=== PATIENT | female | born 1990 | race Caucasian/White ===

== ENCOUNTER 2016-09-23 06:03 | Emergency (ER) | payer MEDICAID ==
[~2016-09-23] VITALS: Ht 157.5 cm; Wt 102.5 kg
[~2016-09-23 06:03] MED LIST: ALBU8.5H3 IH; ALBU8.5H3 INH; CEPH-443 PO; NITR-58 PO; PRED20TA PO
[2016-09-23 06:06] VITALS: Ht 157.5 cm; Wt 102.5 kg
[2016-09-23] MEDS ORDERED: ACETAMINOPHEN 325 MG TAB PO ONE (07:30)
[2016-09-23 07:37] LABS: ADD SCAN DIFF NO
[2016-09-23 07:44] LABS: BASOPHILS % 0.3 % (0.0-2.0); EOSINOPHILS # 0.5 10^3/ul (0.0-0.5); EOSINOPHILS % 3.5 % (0.0-7.0); HEMATOCRIT 41.1 % (37.0-47.0); HEMOGLOBIN 13.2 g/dl (12.0-16.0); LYMPHOCYTES # 2.5 10^3/ul (0.8-2.9); LYMPHOCYTES % 17.5 % (15.0-51.0); MEAN CORPUSCULAR HEMOGLOBIN 28.1 pg (29.0-33.0); MEAN CORPUSCULAR HGB CONC 32.1 g/dl (32.0-37.0); MEAN CORPUSCULAR VOLUME 87.6 fl (82.0-101.0); MEAN PLATELET VOLUME 11.6 fl (7.4-10.4); MONOCYTE # 0.6 10^3/ul (0.3-0.9); MONOCYTES % 4.2 % (0.0-11.0); NEUTROPHIL # 10.7 10^3/ul (1.6-7.5); NEUTROPHILS % 74.2 % (39.0-77.0); PLATELET COUNT 215 10^3/UL (140-415); RED BLOOD COUNT 4.69 10^6/ul (4.20-5.40); RED CELL DISTRIBUTION WIDTH 14.6 % (11.5-14.5); WHITE BLOOD COUNT 14.4 10^3/ul (4.8-10.8)
--- NOTE | 2016-09-23 07:49 | RADRPT ---
PROCEDURE: US OB. CLINICAL INDICATION: Vaginal bleeding TECHNIQUE: Transabdominal views of the pelvis are available for review. COMPARISON: No prior studies are available for comparison. FINDINGS: There is a single intrauterine gestation with the crown-rump length measuring 6.1 cm, corresponding to a gestational age of 12 weeks and 4 days. The heart rate is noted at 152 bpm. The ovaries are not seen. There is no free fluid. RPTAT: AA IMPRESSION: Single live intrauterine with an estimated gestational age of 12 weeks and 4 days, based o n ultrasound measurements. BRITANY based on ultrasound measurements is 04/03/2017. .Payam Rascon MD, MD Date Time Electronically viewed and signed by .Payam Rascon MD, MD on 09/23/2016 07:49 .S/
[2016-09-23] MEDS ORDERED: ACET325T33 PO (08:21)
[2016-09-23] MEDS ORDERED: AMO500 PO (08:21)
[2016-09-23 08:46] LABS: ADD UMIC YES; URINE BILIRUBIN (Dip) NEGATIVE (NEGATIVE); URINE BLOOD (Dip) NEGATIVE (NEGATIVE); URINE COLOR LT. YELLOW (YELLOW); URINE GLUCOSE (Dip) NEGATIVE (NEGATIVE); URINE KETONES (Dip) NEGATIVE (NEGATIVE); URINE LEUKOCYTE ESTERASE (Dip) 2+ (NEGATIVE); URINE NITRITE (Dip) NEGATIVE (NEGATIVE); URINE TOTAL PROTEIN (Dip) NEGATIVE (NEGATIVE); URINE UROBILINOGEN (Dip) 0.2 E.U./dL (0.1-1.0)
[2016-09-23 09:01] LABS: BACTERIA,URINE FEW; URINE RBCS 0-2 /HPF (0)
--- NOTE | 2016-09-23 09:21 | ERD ---
ER Documentation Chief Complaint Date/Time DATE: 09/23/16 TIME: 09:15 Chief Complaint 13 wks , pelvic pain, sore throat, fever HPI This patient is a 25-year-old female presenting to the emergency department for pelvic pain the past 2 days. The pain is worse when coughing. The patient is taken no medication for relief of symptoms. The patient is reportedly 13 weeks . Additionally the patient reports sore throat for 2 days. The patient denies vaginal bleeding, suprapubic cramping, low back pain, dizziness, fevers, chills, or other symptoms at this time. ROS All systems reviewed and are negative except as per history of present illness. Medications Home Meds Active Scripts Acetaminophen* (Tylenol*) 325 Mg Tablet, 2 TAB PO Q6 Y for PAIN AND OR ELEVATED TEMP, #20 TAB Prov:MATT SANCHEZ PA-C 09/23/16 Amoxicillin* (Amoxicillin*) 500 Mg Cap, 500 MG PO BID for 10 Days, #20 CAP Prov:MATT SANCHEZ PA-C 09/23/16 Cephalexin* (Keflex*) 500 Mg Capsule, 500 MG PO BID for 10 Days, CAP Prov:MATY PHILLIPS PA-C 10/11/15 Nitrofurantoin Monohyd Macrocr* (Macrobid*) 100 Mg Capsr, 100 MG PO BID, #14 CAP 0 Refills Prov:CARROLL GARCÍA PA-C 09/20/15 Albuterol Sulfate* (Proair HFA*) 8.5 Gm Hfa.aer.ad, 2 PUFF INH Q4H Y for WHEEZING AND SOB, #1 INHALER Prov:ASHOK MANCINI 08/13/15 Prednisone* (Prednisone*) 20 Mg Tab, 60 MG PO DAILY for 5 Days, TAB Prov:ASHOK MANCINI 08/13/15 Reported Medications Albuterol Sulfate* (Proair HFA*) 8.5 Gm Hfa.aer.ad, 8.5 GM IH PRN 07/05/13 Allergies Allergies: Coded Allergies: No Known Allergy (Unverified , 11/05/15) PMhx/Soc History of Surgery: No Anesthesia Reaction: No Hx Neurological Disorder: No Hx Respiratory Disorders: Yes (ASTHMA ) Hx Cardiac Disorders: No Hx Psychiatric Problems: No Hx Miscellaneous Medical Probl: No Hx Alcohol Use: No Hx Substance Use: No Hx Tobacco Use: No Smoking Status: Never smoker FmHx Noncontributory for chief complaint. Physical Exam Vitals Vital Signs Date Time Temp Pulse Resp B/P Pulse Ox O2 Delivery O2 Flow Rate FiO2 09/23/16 06:06 98.7 88 20 126/61 98 Physical Exam Const: The patient is resting comfortably in no acute distress. Head: Atraumatic Eyes: Normal Conjunctiva ENT: Normal External Ears, Nose and Mouth. There is bilateral tonsillar erythema with scant exudate present. The airway is clear and there is no uvular deviation. Neck: Full range of motion..~ No meningismus. Resp: Clear to auscultation bilaterally Cardio: Regular rate and rhythm, no murmurs Abd: Gravid abdomen, soft, non tender, non distended. Normal bowel sounds Skin: No petechiae or rashes Back: No midline or flank tenderness Ext: No cyanosis, or edema Neur: Awake and alert Psych: Normal Mood and Affect Result Diagram: 09/23/16 0714 Results 24 hrs Laboratory Tests Test 09/23/16 07:14 09/23/16 07:19 White Blood Count 14.410^3/ul Red Blood Count 4.6910^6/ul Hemoglobin 13.2g/dl Hematocrit 41.1% Mean Corpuscular Volume 87.6fl Mean Corpuscular Hemoglobin 28.1pg Mean Corpuscular Hemoglobin Concent 32.1g/dl Red Cell Distribution Width 14.6% Platelet Count 60240^3/UL Mean Platelet Volume 11.6fl Neutrophils % 74.2% Lymphocytes % 17.5% Monocytes % 4.2% Eosinophils % 3.5% Basophils % 0.3% Nucleated Red Blood Cells % 0.0/100WBC Neutrophils # 10.710^3/ul Lymphocytes # 2.510^3/ul Monocytes # 0.610^3/ul Eosinophils # 0.510^3/ul Basophils # 0.010^3/ul Nucleated Red Blood Cells # 0.010^3/ul Beta HCG, Quantitative 31171.0mIU/ml Urine Color LT. YELLOW Urine Clarity CLEAR Urine pH 7.0 Urine Specific [place] 1.015 Urine Ketones NEGATIVE Urine Nitrite NEGATIVE Urine Bilirubin NEGATIVE Urine Urobilinogen 0.2 E.U./dL Urine Leukocyte Esterase 2+ Urine Microscopic RBC 0-2/HPF Urine Microscopic WBC 2-5/HPF Urine Epithelial Cells MANY Urine Bacteria FEW Urine Hemoglobin NEGATIVE Urine Glucose NEGATIVE% Urine Total Protein NEGATIVE Current Medications Medications (Trade) Dose Ordered Sig/Jhonathan Route PRN Reason Start Time Stop Time Status Last Admin Dose Admin Acetaminophen (Tylenol Tab) 650 mg ONCE ONCE PO 09/23/16 07:30 09/23/16 07:31 DC 09/23/16 07:32 Procedures/MDM EMERGENCY DEPARTMENT COURSE / MEDICAL DECISION MAKING: This is a 25-year-old female who comes to the emergency room secondary to complaints of pelvic pain and sore throat. The patient was given p.o. Tylenol in the department. On re-evaluation, the patient was feeling improved. Lab results reviewed and showed slight leukocytosis with left shift but no signs of anemia. Urinalysis showed 2+ leukocytes which is possibly concerning for UTI. There is no proteinuria. Beta hCG was consistent with term of . Radiology: PROCEDURE: US OB. CLINICAL INDICATION: Vaginal bleeding TECHNIQUE: Transabdominal views of the pelvis are available for review. COMPARISON: No prior studies are available for comparison. FINDINGS: There is a single intrauterine gestation with the crown-rump length measuring 6.1 cm, corresponding to a gestational age of 12 weeks and 4 days. The heart rate is noted at 152 bpm. The ovaries are not seen. There is no free fluid. RPTAT: AA IMPRESSION: Single live intrauterine with an estimated gestational age of 12 weeks and 4 days, based on ultrasound measurements. BRITANY based on ultrasound measurements is 04/03/2017. .Payam Rascon MD, MD Date Time Electronically viewed and signed by .Payam Rascon MD, MD on 09/23/2016 07: 49 .S/ CC: MATT SANCHEZ PA-C The primary diagnosis is pelvic pain affecting and first trimester. Secondary diagnosis is tonsillitis. Other diagnoses include urinary tract infection and sore throat. I have low suspicion for peritonsillar abscess, retropharyngeal abscess, mastoiditis, septicemia, ectopic , preeclampsia, eclampsia, or other emergent conditions at this time. Discharge: I have discussed the lab results and diagnostic findings with the patient and answered any questions or concerns. The patient was discharged with a prescription for Tylenol and amoxicillin. The patient was advised to followup with their PMD in 1-2 days and to return to the Emergency Department if there are any new or worsening symptoms. The patient understood and agreed with the diagnosis, treatment and plan. The patient is stable for discharge at this time. Departure Diagnosis: Primary Impression: Pelvic pain affecting in first trimester, antepartum Additional Impressions: Tonsillitis Sore throat Urinary tract infection Urinary tract infection type: acute cystitis Hematuria presence: without hematuria Qualified Code: N30.00 - Acute cystitis without hematuria Condition: Fair Patient Instructions: Self-Care for Sore Throats, Pelvic Pain In : Unclear (2-3 Trimester) [facility] Usted se monet hecho un examen mdico de control que le indica que no est en flores condicin que requiera tratamiento urgente en el Departamento de Emergencia. Un estudio ms profundo y el tratamiento de liu condicin pueden esperar sin ningn riesgo hasta que usted sea atendida/o en el consultorio de liu mdico o flores cl nichole. Es responsabilidad suya arreglar flores angelica para el seguimiento del ana cristina. MANEJO DE CONDICIONES NO URGENTES EN EL FUTURO 1) Si usted tiene un mdico de atencin primaria: Usted debera llamar a liu mdico de atencin primaria antes de venir al departamento de emergencia. Despus de las horas de consultorio, liu doctor o liu asociado/a est disponible por telfono. El mdico o enfermero de edward en el servicio telefnico puede asesorarle por frida medio para atender el problema, o ana cristina contrario se puede programar flores angelica. 2) Si usted no tiene un mdico de atencin primaria: Llame al mdico o clnica de referencia que aparece abajo arlene las horas de consultorio para hacer flores angelica para que le vean. CLINICAS: [facility] [phone] [facility] [phone] [facility] [phone] [place] [id number] [place] [id number] [phone] [facility]. [phone] [address] Additional Instructions: No mas mejor en 2-3 manriquez, regresar. Mas peor en 24 horas, regresear rapidamente. Ir a doctor primario in 5-7 manriquez. Usar instrucciones cuando alma rosa medicamento. MATT SANCHEZ PA-C Sep 23, 2016 09:21
== END 2016-09-23 08:36 | disposition home or self-care (01) ==
LOC: FTE 06:03
DX: O26.891 Other specified pregnancy related conditions, first trimester (principal); R10.2 Pelvic and perineal pain; J03.90 Acute tonsillitis, unspecified; O23.11 Infections of bladder in pregnancy, first trimester; O99.511 Diseases of the respiratory system complicating pregnancy, first trimester; J45.909 Unspecified asthma, uncomplicated; Z3A.12 12 weeks gestation of pregnancy
CPT/HCPCS: 76801; 81001; 84702; 85025; 86900; 86901; 87086; Z7610; 36415; 81003

== ENCOUNTER 2016-10-26 13:09 | Emergency (ER) | payer MEDICAID ==
[~2016-10-26] VITALS: Wt 83.0 kg
[~2016-10-26 13:09] MED LIST changes: +ACET325T33 PO; +AMO500 PO
--- NOTE | 2016-10-26 14:24 | ERD ---
ER Documentation Chief Complaint Date/Time DATE: 10/26/16 TIME: 14:23 Chief Complaint PELVIC PAIN X 2 DAYS 18 WEEKS PREG HPI 25 yo female who is approximately 10 weeks , 3 with history of 2 D&Cs comes emergency room with lower abdominal pain for 2 days. She states it is diffuse in the lower abdomen, constant, aching she radiates to right lower and left lower pelvic region. She denies any fever or chills. She states that she has had morning nausea vomiting and that this is normal for her. She reports 2 episodes of nonbloody nonbilious emesis this morning. ROS All systems reviewed and are negative except as per history of present illness. Medications Home Meds Active Scripts Cephalexin* (Keflex*) 500 Mg Capsule, 500 MG PO TID for 7 Days, CAP Prov:ANAY HOLGUIN PA-C 10/26/16 Acetaminophen* (Tylenol*) 325 Mg Tablet, 2 TAB PO Q6 Y for PAIN AND OR ELEVATED TEMP, #20 TAB Prov:MATT SANCHEZ PA-C 09/23/16 Amoxicillin* (Amoxicillin*) 500 Mg Cap, 500 MG PO BID for 10 Days, #20 CAP Prov:MATT SANCHEZ PA-C 09/23/16 Cephalexin* (Keflex*) 500 Mg Capsule, 500 MG PO BID for 10 Days, CAP Prov:MATY PHILLIPS PA-C 10/11/15 Nitrofurantoin Monohyd Macrocr* (Macrobid*) 100 Mg Capsr, 100 MG PO BID, #14 CAP 0 Refills Prov:CARROLL GARCÍA PA-C 09/20/15 Albuterol Sulfate* (Proair HFA*) 8.5 Gm Hfa.aer.ad, 2 PUFF INH Q4H Y for WHEEZING AND SOB, #1 INHALER Prov:ASHOK MANCINI 08/13/15 Prednisone* (Prednisone*) 20 Mg Tab, 60 MG PO DAILY for 5 Days, TAB Prov:ASHOK MANCINI 08/13/15 Reported Medications Albuterol Sulfate* (Proair HFA*) 8.5 Gm Hfa.aer.ad, 8.5 GM IH PRN 07/05/13 Allergies Allergies: Coded Allergies: No Known Allergy (Unverified , 11/05/15) PMhx/Soc History of Surgery: No Anesthesia Reaction: No Hx Neurological Disorder: No Hx Respiratory Disorders: Yes (ASTHMA ) Hx Cardiac Disorders: No Hx Psychiatric Problems: No Hx Miscellaneous Medical Probl: No Hx Alcohol Use: No Hx Substance Use: No Hx Tobacco Use: No Physical Exam Vitals Vital Signs Date Time Temp Pulse Resp B/P Pulse Ox O2 Delivery O2 Flow Rate FiO2 10/26/16 13:14 98.0 79 18 131/68 99 Physical Exam General: Well-developed, well-nourished. The patient appears in no acute distress. HEENT: Head is normocephalic, atraumatic. No scleral icterus. Neck: Supple. Nontender. Lungs: Clear to auscultation. Normal air movement. Heart: Regular rate and rhythm. S1 and S2 are normal. No murmurs, gallops, or rubs. Abdomen: Soft, tender to palpation in the lower abdomen, more in the suprapubic region, without rebound pain,nondistended. Bowel sounds are normoactive. Extremities: No clubbing or cyanosis. Normal pulses. Moving extremities x 4. No weakness. Neurologic: Alert and oriented 3. No focal deficits. Skin: Normal turgor. No rash or lesions. Result Diagram: 10/26/16 1415 10/26/16 1415 Results 24 hrs Laboratory Tests Test 10/26/16 14:15 10/26/16 14:17 White Blood Count 12.110^3/ul Red Blood Count 4.3610^6/ul Hemoglobin 12.6g/dl Hematocrit 37.9% Mean Corpuscular Volume 86.9fl Mean Corpuscular Hemoglobin 28.9pg Mean Corpuscular Hemoglobin Concent 33.2g/dl Red Cell Distribution Width 13.3% Platelet Count 55060^3/UL Mean Platelet Volume 12.2fl Neutrophils % 64.7% Lymphocytes % 27.2% Monocytes % 5.1% Eosinophils % 2.2% Basophils % 0.3% Nucleated Red Blood Cells % 0.0/100WBC Neutrophils # 7.810^3/ul Lymphocytes # 3.310^3/ul Monocytes # 0.610^3/ul Eosinophils # 0.310^3/ul Basophils # 0.010^3/ul Nucleated Red Blood Cells # 0.010^3/ul Sodium Level 138mmol/L Potassium Level 3.6mmol/L Chloride Level 103mmol/L Carbon Dioxide Level 24mmol/L Anion Gap 15 Blood Urea Nitrogen 6mg/dl Creatinine 0.44mg/dl Glucose Level 81mg/dl Calcium Level 9.4mg/dl Total Bilirubin 0.1mg/dl Direct Bilirubin 0.00mg/dl Indirect Bilirubin 0.1mg/dl Aspartate Amino Transf (AST/SGOT) 17IU/L Alanine Aminotransferase (ALT/SGPT) 27IU/L Alkaline Phosphatase 78IU/L Total Protein 7.7g/dl Albumin 3.8g/dl Globulin 3.90g/dl Albumin/Globulin Ratio 0.97 Lipase 48U/L Beta HCG, Quantitative 78815.0mIU/ml Urine Color LT. YELLOW Urine Clarity CLEAR Urine pH 7.0 Urine Specific [place] 1.020 Urine Ketones NEGATIVE Urine Nitrite NEGATIVE Urine Bilirubin NEGATIVE Urine Urobilinogen 0.2 E.U./dL Urine Leukocyte Esterase 1+ Urine Microscopic RBC NONE SEEN/HPF Urine Microscopic WBC 0-2/HPF Urine Epithelial Cells MODERATE Urine Bacteria MODERATE Urine Hemoglobin NEGATIVE Urine Glucose NEGATIVE% Urine Total Protein NEGATIVE Current Medications Medications (Trade) Dose Ordered Sig/Jhonathan Route PRN Reason Start Time Stop Time Status Last Admin Dose Admin Acetaminophen (Tylenol Tab) 650 mg ONCE ONCE PO 10/26/16 14:30 10/26/16 14:31 DC 10/26/16 14:23 PROCEDURE: US OB. CLINICAL INDICATION: Size and dates , pelvic pain TECHNIQUE: Multiple sonographic images of the pelvis and gravid uterus were obtained. The images were reviewed on a PACS workstation. COMPARISON: 09/23/2016 FINDINGS: The cervix is closed with a length of 2.5 cm. There is a single viable intrauterine gestation. Cardiac activity is present with 154 beats per minute. There is a vertex/variable presentation. The placenta is posterior. There is no evidence for an abruption or placenta previa. There is a normal amount of amniotic fluid with a MVP= 4.9 cm. Measurements were made in order to determine age. The results are as follows: BPD = 3.8 cm HC = 14.4 cm AC = 11.4 cm FL = 2.5 cm Estimated gestational age of approximately 17 weeks and 3 days based on ultrasound measurements. Clinical age: 17 weeks and 1 day. The estimated date of delivery is 04/02/17, based on ultrasound measurements. The EFW = 192 g, 59.6%, based on LMP age. The ovaries are normal in size and echogenicity with normal Doppler flow. The right ovary measures 3.6 x 2.0 cm. The left ovary measures 3.3 x 1.9 cm. RPTAT: AA IMPRESSION: Single viable intrauterine gestation of approximately 17 weeks and 3 days based on ultrasound measurements. .Paaym Rascon MD, MD Date Time Electronically viewed and signed by .Payam Rascon MD, on 10/26/2016 15: 16 .S/ Procedures/MDM ED course: Patient had labs and urine obtained, pelvic ultrasound is ordered. She was given Tylenol for pain. MDM: 25-year-old female presents with pelvic pain for the past 3 days, she states it is diffuse in the lower pelvic region for the past 3 days. Patient had pelvic ultrasound that shows a single live intrauterine with positive heart tones, there is no placenta previa. Labs were all unremarkable. Urine shows 1+ leukocyte esterase, given her pain in the suprapubic region patient will be given antibiotics that she is . I believe most of her pain in the pelvic area is likely due to the related pain. She does not have any distinct McBurney's pain, I doubt acute appendicitis. She was given Tylenol in the emergency department and reports that her pain is significantly better. At this time I have asked her to recheck her pain with her OB in the next 1-2 days. Departure Diagnosis: Primary Impression: UTI (urinary tract infection) Additional Impression: Pelvic pain during Condition: ANAY Hooks PA-C October 26, 2016 14:24
[2016-10-26] MEDS ORDERED: ACETAMINOPHEN 325 MG TAB PO ONE (14:30)
[2016-10-26 14:41] LABS: ADD SCAN DIFF NO
[2016-10-26 14:44] LABS: BASOPHILS % 0.3 % (0.0-2.0); EOSINOPHILS # 0.3 10^3/ul (0.0-0.5); EOSINOPHILS % 2.2 % (0.0-7.0); HEMATOCRIT 37.9 % (37.0-47.0); HEMOGLOBIN 12.6 g/dl (12.0-16.0); LYMPHOCYTES # 3.3 10^3/ul (0.8-2.9); LYMPHOCYTES % 27.2 % (15.0-51.0); MEAN CORPUSCULAR HEMOGLOBIN 28.9 pg (29.0-33.0); MEAN CORPUSCULAR HGB CONC 33.2 g/dl (32.0-37.0); MEAN CORPUSCULAR VOLUME 86.9 fl (82.0-101.0); MEAN PLATELET VOLUME 12.2 fl (7.4-10.4); MONOCYTE # 0.6 10^3/ul (0.3-0.9); MONOCYTES % 5.1 % (0.0-11.0); NEUTROPHIL # 7.8 10^3/ul (1.6-7.5); NEUTROPHILS % 64.7 % (39.0-77.0); PLATELET COUNT 236 10^3/UL (140-415); RED BLOOD COUNT 4.36 10^6/ul (4.20-5.40); RED CELL DISTRIBUTION WIDTH 13.3 % (11.5-14.5); WHITE BLOOD COUNT 12.1 10^3/ul (4.8-10.8)
[2016-10-26 14:45] LABS: ADD UMIC YES; URINE BILIRUBIN (Dip) NEGATIVE (NEGATIVE); URINE BLOOD (Dip) NEGATIVE (NEGATIVE); URINE COLOR LT. YELLOW (YELLOW); URINE GLUCOSE (Dip) NEGATIVE (NEGATIVE); URINE KETONES (Dip) NEGATIVE (NEGATIVE); URINE LEUKOCYTE ESTERASE (Dip) 1+ (NEGATIVE); URINE NITRITE (Dip) NEGATIVE (NEGATIVE); URINE TOTAL PROTEIN (Dip) NEGATIVE (NEGATIVE); URINE UROBILINOGEN (Dip) 0.2 E.U./dL (0.1-1.0)
[2016-10-26 14:58] LABS: BACTERIA,URINE MODERATE; URINE RBCS NONE SEEN /HPF (0)
[2016-10-26 15:00] LABS: ALBUMIN 3.8 g/dl (3.3-4.9)
[2016-10-26 15:01] LABS: POTASSIUM 3.6 mmol/L (3.5-5.1)
[2016-10-26 15:03] LABS: ALBUMIN/GLOBULIN RATIO 0.97; BILIRUBIN,INDIRECT 0.1 mg/dl (0-1.1); BILIRUBIN,TOTAL 0.1 mg/dl (0.2-1.3); CALCIUM 9.4 mg/dl (8.4-10.2); CREATININE 0.44 mg/dl (0.44-1.00); TOTAL PROTEIN 7.7 g/dl (6.1-8.1)
--- NOTE | 2016-10-26 15:17 | RADRPT ---
PROCEDURE: US OB. CLINICAL INDICATION: Size and dates , pelvic pain TECHNIQUE: Multiple sonographic images of the pelvis and gravid uterus were obtained. The images were reviewed on a PACS workstation. COMPARISON: 09/23/2016 FINDINGS: The cervix is closed with a length of 2.5 cm. There is a single viable intrauterine gestation. Cardiac activity is present with 154 beats per min chas. There is a vertex/variable presentation. The placenta is posterior. There is no evidence for an abruption or placenta previa. There is a normal amount of amniotic fluid with a MVP= 4.9 cm. Measurements were made in order to determine age. The results are as follows: BPD =3.8 cm HC =14.4 cm AC =11.4 cm FL =2.5 cm Estimated gestational age of approximately 17 weeks and 3 days based on ultrasound measurements. Clinical age: 17 weeks and 1 day. The estimated date of delivery is 04/02/17, based on ultrasound measurements. The EFW = 192 g, 59.6%, based on LMP age. The ovaries are normal in size and echogenicity with normal Doppler flow. The right ovary measures 3.6 x 2.0 cm. The left ovary measures 3.3 x 1.9 cm. RPTAT: AA IMPRESSION: Single viable intrauterine gestation of approximately 17 weeks and 3 days based on ultrasound measu rements. .Payam Rascon MD, MD Date Time Electronically viewed and signed by .Payam Rascon MD, MD on 10/26/2016 15:16 .S/
[2016-10-26] MEDS ORDERED: CEPH-443 PO (15:58)
== END 2016-10-26 16:21 | disposition home or self-care (01) ==
LOC: FTE 13:09
DX: O23.42 Unspecified infection of urinary tract in pregnancy, second trimester (principal); R10.2 Pelvic and perineal pain; J45.909 Unspecified asthma, uncomplicated; O99.512 Diseases of the respiratory system complicating pregnancy, second trimester; Z3A.17 17 weeks gestation of pregnancy
CPT/HCPCS: 36415; 76805; 80053; 81001; 83690; 84702; 85025; 86900; 86901; Z7502; Z7610

== ENCOUNTER 2016-11-17 09:29 | Outpatient (CLI) | payer MEDICAID ==
[~2016-11-17] VITALS: Ht 152.4 cm; Wt 102.2 kg
[2016-11-17 10:02] VITALS: BP 109/56; PULSE 75
[2016-11-17] MEDS ORDERED: PRENAT PO (10:04)
--- NOTE | 2016-11-17 10:55 | RADRPT ---
PROCEDURE: Limited OB ultrasound CLINICAL INDICATION: Vaginal bleeding TECHNIQUE: Sonographic evaluation to assess the cervical length was performed. Transabdominal cassidy ging of the gravid uterus was performed. COMPARISON: No prior exam is available for comparison. FINDINGS: There is a single live intrauterine with cardiac activity, with a heart rate o f 150 bpm. position is variable. The placenta is posterior. The cervix is closed with a burt gth of 3.3 cm. IMPRESSION: The cervix is closed with a length of 3.3 cm. RPTAT: HH .Brielle Soto MD, MD Date Time Electronically viewed and signed by .Brielle Soto MD, on 11/17/2016 10:55 .G/
[2016-11-17 11:00] LABS: ADD SCAN DIFF NO
[2016-11-17 11:07] LABS: BASOPHILS % 0.3 % (0.0-2.0); EOSINOPHILS # 0.4 10^3/ul (0.0-0.5); EOSINOPHILS % 3.4 % (0.0-7.0); HEMATOCRIT 37.4 % (37.0-47.0); LYMPHOCYTES # 2.9 10^3/ul (0.8-2.9); LYMPHOCYTES % 24.6 % (15.0-51.0); MEAN CORPUSCULAR HGB CONC 32.1 g/dl (32.0-37.0); MEAN CORPUSCULAR VOLUME 87.4 fl (82.0-101.0); MEAN PLATELET VOLUME 11.8 fl (7.4-10.4); MONOCYTE # 0.6 10^3/ul (0.3-0.9); MONOCYTES % 4.8 % (0.0-11.0); NEUTROPHIL # 7.8 10^3/ul (1.6-7.5); NEUTROPHILS % 66.5 % (39.0-77.0); PLATELET COUNT 205 10^3/UL (140-415); RED BLOOD COUNT 4.28 10^6/ul (4.20-5.40); RED CELL DISTRIBUTION WIDTH 13.9 % (11.5-14.5); WHITE BLOOD COUNT 11.8 10^3/ul (4.8-10.8)
[2016-11-17 11:36] LABS: ADD UMIC YES; URINE BILIRUBIN (Dip) NEGATIVE (NEGATIVE); URINE BLOOD (Dip) 2+ (NEGATIVE); URINE COLOR LT. YELLOW (YELLOW); URINE GLUCOSE (Dip) NEGATIVE (NEGATIVE); URINE KETONES (Dip) TRACE (NEGATIVE); URINE LEUKOCYTE ESTERASE (Dip) 1+ (NEGATIVE); URINE NITRITE (Dip) NEGATIVE (NEGATIVE); URINE TOTAL PROTEIN (Dip) NEGATIVE (NEGATIVE); URINE UROBILINOGEN (Dip) 0.2 E.U./dL (0.1-1.0)
[2016-11-17 11:46] LABS: BACTERIA,URINE FEW; URINE RBCS 0-2 /HPF (0)
--- NOTE | 2016-11-17 13:20 | CONS ---
Date/Time of Note Date/Time of Note DATE: 11/17/16 TIME: 13:15 Consultation Date/Type/Reason Admit Date/Time November 17, 2016 OB triage consult Reason for Consultation This patient is a 26 years old 5 para 2 2 whose estimated date of confinement is 04/04/2017 which makes her 20 weeks and 2 days now She came to triage complaining of vaginal spotting since last night No pain no contractions no other symptoms On questioning she denies any sexual intercourse On examination her abdomen is soft no CVA tenderness chest is clear Her general vital signs are within normal limit with blood pressure 109/56, pulse rate 75, respiration 18, and temperature 98.1. We did a pelvic examination the cervix was closed long and hit obviously was not palpable palpable there was very little pinkish discharge Constitutional: No chills, No diaphoresis, No disoriented, No febrile, No improved, No no complaints, No other, No poor po, No requiring IVF, No requiring O2 Eyes: No discharge, No no complaints, No other, No pain, No redness, No visual change ENT: No bleeding, No congestion, No discharge, No dysphagia, No no complaints, No other, No pain, No sore throat Respiratory: No cough, No no complaints, No other, No pain, No pleuritic pain, No shortness of breath, No sputum, No wheezing Cardiovascular: No chest pain, No edema, No lightheadedness, No no complaints, No orthopenea, No other, No palpitations, No paroxysmal nocturnal dyspnea Gastrointestinal: other (As I mentioned on pelvic examination the cervix was closed and long no evidence of rupture membrane no active bleeding), No blood, No constipation, No decreased appetite, No diarrhea, No flatus, No nausea, No no complaints, No pain, No passing stool, No vomiting Genitourinary: No bleeding, No discharge, No dysuria, No flank pain, No hematuria, No no complaints, No other Musculoskeletal: No back pain, No bone/joint pain, No neck pain, No no complaints, No other, No restricted range of motion, No swelling Skin: No bruising, No erythema, No laceration, No no complaints, No other, No pruritis, No rash, No skin lesions Neurologic: No confusion, No dizziness, No focal-weakness, No headache, No no complaints, No other, No seizure, No syncope Additional Comments Report performed a an OB ultrasound report is a single live intrauterine with cardiac activity the heart rate 150/min and placenta was posterior the cervix was closed and the length of the cervix was 3.3 cm On lab studies her tests were basically within normal limits WBC was slightly elevated at 11.8 H&H and other part of the CBC were normal her urinalysis were basically normal except for 2+ blood and 1+ leukocyte esterase which was not very unusual for someone who had slight vaginal bleeding With these negative findings patient was discharged home to rest at home and to be seen in the clinic by Dr. Kay tomorrow Past Surgical History Past Surgical Hx: no surgical history Social History Smoking Status: Never smoker Exam/Review of Systems Vital Signs Vitals Vital Signs Date Time Temp Pulse Resp B/P Pulse Ox O2 Delivery O2 Flow Rate FiO2 11/17/16 10:02 98.1 75 109/56 Results Result Diagram: 11/17/16 1042 Results 24 hrs Laboratory Tests Test 11/17/16 10:00 11/17/16 10:42 Urine Color LT. YELLOW Urine Clarity CLEAR Urine pH 7.0 Urine Specific [place] 1.010 Urine Ketones TRACE H Urine Nitrite NEGATIVE Urine Bilirubin NEGATIVE Urine Urobilinogen 0.2 E.U./dL Urine Leukocyte Esterase 1+ H Urine Microscopic RBC 0-2 Urine Microscopic WBC 0-2 Urine Epithelial Cells MODERATE Urine Amorphous Urates MODERATE Urine Bacteria FEW Urine Coarse Granular Casts OCCASIONAL Urine Hemoglobin 2+ H Urine Glucose NEGATIVE Urine Total Protein NEGATIVE White Blood Count 11.8 H Red Blood Count 4.28 Hemoglobin 12.0 Hematocrit 37.4 Mean Corpuscular Volume 87.4 Mean Corpuscular Hemoglobin 28.0 L Mean Corpuscular Hemoglobin Concent 32.1 Red Cell Distribution Width 13.9 Platelet Count 205 Mean Platelet Volume 11.8 H Neutrophils % 66.5 Lymphocytes % 24.6 Monocytes % 4.8 Eosinophils % 3.4 Basophils % 0.3 Nucleated Red Blood Cells % 0.0 Neutrophils # 7.8 H Lymphocytes # 2.9 Monocytes # 0.6 Eosinophils # 0.4 Basophils # 0.0 Nucleated Red Blood Cells # 0.0 NEFTALY MAYA MD Nov 17, 2016 13:20
== END 2016-11-17 13:05 | disposition home or self-care (01) ==
LOC: OBT 09:29 → L-D 09:30 → OBT 13:05
PROVIDERS: ATTEND Obstetrics & Gynecology
DX: O26.852 Spotting complicating pregnancy, second trimester (principal); Z3A.26 26 weeks gestation of pregnancy
CPT/HCPCS: 36415; 76817; 81001; 85025; Z7500; G0463

== ENCOUNTER 2016-12-31 12:32 | Emergency (ER) | payer MEDICAID ==
[~2016-12-31] VITALS: Ht 162.6 cm; Wt 103.5 kg
[~2016-12-31 12:32] MED LIST changes: -ACET325T33 PO; -ALBU8.5H3 IH; -ALBU8.5H3 INH; -AMO500 PO; +ASTHMA MED INH; -CEPH-443 PO; -NITR-58 PO; -PRED20TA PO; +PREDNISONE PO; +PRENAT PO; +PRENATAL VIT PO
[2016-12-31 12:33] VITALS: Ht 162.6 cm; Wt 103.5 kg
[2016-12-31] MEDS ORDERED: ALBUTEROL 0.083% (NEB) 2.5 MG/3 ML AMP HHN STA (12:49)
[2016-12-31] MEDS ORDERED: predniSONE 20 MG TAB PO ONE (13:00)
[2016-12-31] MEDS ORDERED: IPRATROPIUM (NEB) 0.5 MG/2.5 ML AMP HHN ONE (13:00)
[2016-12-31] MEDS ORDERED: PRED20TA PO (13:39)
[2016-12-31] MEDS ORDERED: ALBU18HF INHALATION (13:40)
[2016-12-31 13:46] VITALS: BP 132/74; PULSE 86; RESP 20; TEMP 98.3
--- NOTE | 2016-12-31 16:08 | ERD ---
ER Documentation Chief Complaint Date/Time DATE: 12/31/16 TIME: 16:04 Chief Complaint ASTHMA EXACERBATION , INHALER NOT WORKING , 26 WEEKS PREG , DENIES AP HPI This patient is a 26 week female presenting to the emergency department with complaints of acute exacerbation of asthma. The patient has had asthma for many years. Symptoms are constant. Symptoms have been worsening intermittently for 1 week. Symptoms are currently moderate in severity. The patient uses albuterol inhaler at home but has been having no relief. The patient has had no pelvic pain, suprapubic cramping or pain, vaginal discharge, vaginal bleeding. She denies cough, fevers, chills, and chest pain. The patient denies any symptoms of acute respiratory distress, tripoding, or other symptoms currently. ROS All systems reviewed and are negative except as per history of present illness. Medications Home Meds Active Scripts Albuterol Sulfate* (Ventolin HFA*) 18 Gm Hfa.aer.ad, 2 PUFF INHALATION Q4H, #1 INHALER Prov:MATT SANCHEZ PA-C 12/31/16 Prednisone* (Prednisone*) 20 Mg Tab, 40 MG PO DAILY for 3 Days, #6 TAB Prov:MATT SANCHEZ PA-C 12/31/16 Reported Medications [Asthma Med] No Conflict Check, INH PRN 01/14/13 [ Vit] No Conflict Check, 1 TAB PO DAILY 01/14/13 [Prednisone] No Conflict Check, PO DAILY 01/14/13 Allergies Allergies: Coded Allergies: No Known Allergy (Unverified , 01/14/13) PMhx/Soc Medical and Surgical Hx: pt denies Medical Hx, pt denies Surgical Hx History of Surgery: No Anesthesia Reaction: No Hx Neurological Disorder: No Hx Respiratory Disorders: Yes (ASTHMA) Hx Cardiac Disorders: No Hx Psychiatric Problems: No Hx Miscellaneous Medical Probl: No Hx Alcohol Use: No Hx Substance Use: No Hx Tobacco Use: No Smoking Status: Never smoker Physical Exam Vitals Vital Signs Date Time Temp Pulse Resp B/P Pulse Ox O2 Delivery O2 Flow Rate FiO2 12/31/16 13:46 98.3 86 20 132/74 98 Room Air 12/31/16 12:55 88 19 96 21 12/31/16 12:33 97.8 88 20 126/72 97 Physical Exam Const: Nontoxic, well-appearing female in no acute distress. Head: Atraumatic Eyes: Normal Conjunctiva ENT: Normal External Ears, Nose and Mouth. Neck: Full range of motion..~ No meningismus. Resp: Inspiratory and expiratory wheezing noted to all lung morse bilaterally. No retractions or other signs of respiratory distress. No crackles auscultated. Cardio: Regular rate and rhythm, no murmurs Abd: Gravid abdomen, soft, non tender, non distended. Normal bowel sounds Skin: No petechiae or rashes Back: No midline or flank tenderness Ext: No cyanosis, or edema Neur: Awake and alert Psych: Normal Mood and Affect Results 24 hrs Current Medications Medications (Trade) Dose Ordered Sig/Jhonathan Route PRN Reason Start Time Stop Time Status Last Admin Dose Admin Prednisone (Prednisone) 40 mg ONCE ONCE PO 12/31/16 13:00 12/31/16 13:01 DC 12/31/16 13:00 Albuterol (Proventil 0.083% (Neb)) 2.5 mg ONCE STAT N 12/31/16 12:49 12/31/16 12:51 DC 12/31/16 12:54 Ipratropium [place] (Atrovent 0.02% (Neb)) 0.5 mg ONCE ONCE N 12/31/16 13:00 12/31/16 13:01 DC 12/31/16 12:54 Procedures/MDM 26-year-old female presents to the emergency department with complaints of acute exacerbation of asthma with wheezing. Exam is consistent with acute asthma with wheezing in all lung morse bilaterally. The patient was given 1 hour continuous breathing treatment with albuterol and ipratropium as well as 40 mg p.o. prednisone in the department on reevaluation she was feeling improved and oxygen saturation improved to 98% on room air. The patient was feeling much improved. The patient was wheezing less on exam after treatment. The patient is stable for outpatient management with a prescription for prednisone and albuterol. She agreed with the discharge plan and diagnosis. Upon discharge there were no signs of acute respiratory distress or other life- threatening emergencies. The patient was hemodynamically stable. The patient' s questions and concerns were addressed. I have low suspicion for aortic dissection, status asthmaticus, pneumothorax, pneumonia, sepsis, or other emergent conditions. The patient denied all obstetrical complaints. The patient was advised to have close follow-up with her primary care physician and her DELI MANAGER physician. She may return to the department immediately if she has any new or worsening symptoms. Departure Diagnosis: Primary Impression: Asthma with acute exacerbation Condition: Fair Patient Instructions: Asthma, Acute (Adult) [facility] Usted se monet hecho un examen mdico de control que le indica que no est en flores condicin que requiera tratamiento urgente en el Departamento de Emergencia. Un estudio ms profundo y el tratamiento de liu condicin pueden esperar sin ningn riesgo hasta que usted sea atendida/o en el consultorio de liu mdico o flores cl nichole. Es responsabilidad suya arreglar flores angelica para el seguimiento del ana cristina. MANEJO DE CONDICIONES NO URGENTES EN EL FUTURO 1) Si usted tiene un mdico de atencin primaria: Usted debera llamar a liu mdico de atencin primaria antes de venir al departamento de emergencia. Despus de las horas de consultorio, liu doctor o liu asociado/a est disponible por telfono. El mdico o enfermero de edward en el servicio telefnico puede asesorarle por frida medio para atender el problema, o ana cristina contrario se puede programar flores angelica. 2) Si usted no tiene un mdico de atencin primaria: Llame al mdico o clnica de referencia que aparece abajo arlene las horas de consultorio para hacer flores angelica para que le vean. CLINICAS: [facility] [phone] [facility] [phone] [facility] [facility] [phone] [facility] [phone] [facility] [phone] [facility]. [phone] [address] Additional Instructions: No mas mejor en 2-3 manriquez, regresar. Mas peor en 24 horas, regresear rapidamente. Ir a doctor primario in 5-7 manriquez. Usar instrucciones cuando alma rosa medicamento. MATT SANCHEZ PA-C Dec 31, 2016 16:08
== END 2016-12-31 14:30 | disposition home or self-care (01) ==
LOC: MERGE 12:32 → FTE 12:32
DX: O99.512 Diseases of the respiratory system complicating pregnancy, second trimester (principal); J45.901 Unspecified asthma with (acute) exacerbation; Z3A.26 26 weeks gestation of pregnancy
CPT/HCPCS: 94664; J7512; Z7502; Z7610

== ENCOUNTER 2017-02-11 09:33 | Inpatient (IN) | payer MEDICAID ==
[~2017-02-11] VITALS: Ht 154.9 cm; Wt 106.1 kg
[~2017-02-11 09:33] MED LIST changes: +ALBU18HF INHALATION; +PRED20TA PO
[2017-02-11 10:31] VITALS: BP 105/55; PULSE 75; Ht 154.9 cm; Wt 106.1 kg
[2017-02-11] MEDS ORDERED: TERBUTALINE 1 MG/ML INJ SC ONE (11:00)
[2017-02-11] MEDS ORDERED: LACTATED RINGER'S 1,000 ML IV SCH ×2 (11:00→14:13)
[2017-02-11 11:37] LABS: ADD UMIC NO; UR ASCORBIC ACID NEGATIVE (NEGATIVE); UR BILIRUBIN (Dip) NEGATIVE (NEGATIVE); UR BLOOD (Dip) NEGATIVE (NEGATIVE); UR CLARITY CLEAR (CLEAR); UR COLOR STRAW (YELLOW); UR GLUCOSE (Dip) NEGATIVE (NEGATIVE); UR KETONES (Dip) NEGATIVE (NEGATIVE); UR LEUKOCYTE ESTERASE (Dip) NEGATIVE Leu/ul (NEGATIVE); UR NITRITE (Dip) NEGATIVE (NEGATIVE); UR SPECIFIC GRAVITY (Dip) 1.004 (1.003-1.030); UR TOTAL PROTEIN (Dip) NEGATIVE (NEGATIVE); UR UROBILINOGEN (Dip) NEGATIVE (NEGATIVE)
--- NOTE | 2017-02-11 12:48 | RADRPT ---
PROCEDURE: Limited obstetric ultrasound CLINICAL INDICATION: Pain TECHNIQUE: Multiple transverse and longitudinal grayscale images of the pelvis were obtained michel sabdominally and transvaginally.. COMPARISON: 11/17/2016 FINDINGS: The cervix is closed with a length of 1.6 cm. There is a single viable intrauterine gestation. Cardiac activity is present with 140 beats per min chas. There is a breech presentation. The placenta is posterior fundal. There is no evidence for an abruption or placenta previa. RPTAT: AA IMPRESSION: Cervix length measures 1.6 cm. .Payam Rascon MD, MD Date Time Electronically viewed and signed by .Payam Rascon MD, on 02/11/2017 12:47 .S/
[2017-02-11 13:16] LABS: BASOPHILS % 0.3 % (0.0-2.0); EOSINOPHILS # 0.2 10^3/ul (0.0-0.5); EOSINOPHILS % 1.3 % (0.0-7.0); HEMATOCRIT 32.9 % (37.0-47.0); HEMOGLOBIN 10.8 g/dl (12.0-16.0); LYMPHOCYTES # 2.8 10^3/ul (0.8-2.9); LYMPHOCYTES % 23.3 % (15.0-51.0); MEAN CORPUSCULAR HEMOGLOBIN 27.6 pg (29.0-33.0); MEAN CORPUSCULAR HGB CONC 32.8 g/dl (32.0-37.0); MEAN CORPUSCULAR VOLUME 83.9 fl (82.0-101.0); MEAN PLATELET VOLUME 11.8 fl (7.4-10.4); MONOCYTE # 0.6 10^3/ul (0.3-0.9); MONOCYTES % 5.4 % (0.0-11.0); NEUTROPHILS % 68.7 % (39.0-77.0); PLATELET COUNT 200 10^3/UL (140-415); RED BLOOD COUNT 3.92 10^6/ul (4.20-5.40); RED CELL DISTRIBUTION WIDTH 14.4 % (11.5-14.5); WHITE BLOOD COUNT 11.9 10^3/ul (4.8-10.8)
[2017-02-11] MEDS ORDERED: MAGNESIUM SULFATE 4 GM/100 ML 100 ML ONE (14:10)
--- NOTE | 2017-02-11 14:11 | HP ---
Date/Time of Note Date/Time of Note DATE: 02/11/17 TIME: 14:06 OB - History Hx of Present Free Text/Dictation 26-year-old female at 32 weeks gestation admitted through triage because of complaint of uterine contractions started 0 800 last p.m. and denies vaginal bleeding having intercourse last night She also denies rupture of membranes Chief Complaint: Uterine contractions Last Menstrual Period: Jun 29, 2016 Estimated Due Date: Apr 04, 2017 : 5 Para: 2 Spontaneous : 2 Care: Good Care Ultrasounds: Normal mid trimester US Obstetrical Complications: None Medical Complications: None Past Family/Social History * Past Medical, Surgical, Family and Obstetric Histories reviewed from chart. Blood Type: A+ Rubella: immune RPR/VDRL: Negative GBS Status: Unknown HBsAG: Negative OB Admission Exam Vital Signs Vital Signs Vital Signs Date Time Temp Pulse Resp B/P Pulse Ox O2 Delivery O2 Flow Rate FiO2 02/11/17 10:31 97.7 75 105/55 Physical Exam HEENT: WNL Heart: Rhythm Normal Lungs: Clear, Equal Abdomen: WNL Extremities: Normal Reflexes: Normal Cervical Dilatation: Fingertip Effacement: 50% Station: -3 Membranes: Intact Heart Rate: 140's Accelerations: Accelerations Present Decelerations: No Decelerations Varibility: Marked Contractions on Admission: 6-10 Minutes Apart Date/Time Contractions Began: February 10, 2017 at 8:00 PM Frequency of Contractions: Every 5-10 minutes Duration: Over 40 seconds Intensity: Moderate Last 72 hours Lab Results CBC & BMP 02/11/17 12:55 OB Assessment/Plan Reason for admission: labor Other Assessment: Short cervix length of the cervix today was 1.8 cm 32 weeks gestation Other plan: Start on magnesium sulfate Steroids Evaluating 2448 hour ABDELRAHMAN SAMANIEGO MD Feb 11, 2017 14:11
[2017-02-11] MEDS ORDERED: BETAMET NA PHOS/AC(6 MG/ML) 5ML INJ ONE (14:25)
[2017-02-11] MEDS ORDERED: MAGNESIUM SULFATE 4 GM/100 ML 100 ML IV ONE (14:30)
[2017-02-11] MEDS: BETAMET NA PHOS/AC(6 MG/ML) 5ML INJ IM SCH (14:33)
[2017-02-11] MEDS: MAGNESIUM SULFATE 20 GM/500 ML 500 ML IV SCH (15:22)
[2017-02-11] MEDS: LACTATED RINGER'S 1,000 ML IV SCH (17:09)
[2017-02-12] MEDS: MAGNESIUM SULFATE 20 GM/500 ML 500 ML IV SCH ×3 (00:51→22:04)
[2017-02-12] MEDS: LACTATED RINGER'S 1,000 ML IV SCH ×2 (05:40→17:59)
[2017-02-12] MEDS: BETAMET NA PHOS/AC(6 MG/ML) 5ML INJ IM SCH (14:31)
--- NOTE | 2017-02-12 18:27 | PN ---
Date/Time of Note Date/Time of Note DATE: 02/12/17 TIME: 18:26 OB Subjective Subjective Subjective No more pain of either an contracture and/or vaginal bleeding OB Objective Objective Objective Vital signs are stable General physical exam is unchanged On electronic monitoring of uterine contractions seen OB Assessment/Plan Reason for admission: labor Other Assessment: Short cervix 30-33 weeks gestation Other plan: We will continue mag sulfate on 224 hour past second dose of the steroids Started on progesterone vaginal tablet for short cervix ABDELRAHMAN SAMANIEGO MD Feb 12, 2017 18:27
[2017-02-12] MEDS ORDERED: PROGESTERONE 100 MG CAP VAG SCH (21:00)
[2017-02-13] MEDS: MAGNESIUM SULFATE 20 GM/500 ML 500 ML IV SCH ×2 (06:13→08:14)
[2017-02-13] MEDS: LACTATED RINGER'S 1,000 ML IV SCH (06:33)
[2017-02-13] MEDS: NIFEdipine 10 MG CAP PO SCH ×3 (10:29→18:00)
[2017-02-13] MEDS ORDERED: NIFEdipine 10 MG CAP PO SCH (12:00)
--- NOTE | 2017-02-13 19:19 | DS ---
Date/Time of Note Date/Time of Note DATE: 02/13/17 TIME: 19:17 Obstetrical Discharge Record Final Diagnosis Final Diagnosis: not delivered Other Final Diagnosis labor at 30-33 week Complications Labor Tocolytics: Magnesium Sulfate, Terbutaline, Other (Nifedipine) Condition on Discharge Physical Assessment Last Vitals: See nurse's notes Voiding: Yes Bowel Movement: Yes Breast: Soft, non-tender, Filling Fundus: Other () Abdomen and Incision: Abdomen is soft and gravid heart tones are reactive Calf Tenderness: No Patient Condition: Good (Patient has no uterine contractions on electronic monitoring was discharged home) ABDELRAHMAN SAMANIEGO MD Feb 13, 2017 19:19
--- NOTE | 2017-02-13 19:21 | DS ---
Date/Time of Note Date/Time of Note DATE: 02/13/17 TIME: 19:19 Discharge Summary Admission/Discharge Info Admit Date/Time Feb 11, 2017 at 14:22 Discharge Date/Time February 13, 2017 Discharge Diagnosis Term labor at 30-33 weeks Short cervix Patient Condition: Good Hx of Present Illness 26-year-old female admitted with diagnosis of labor and was kept on magnesium sulfate for over 36 hours. She received doses of steroids Finally was discharged home per perinatologist recommendation on bed and pelvic rest and continuing the current medication which included Prometrium and nifedipine Hospital Course Uncomplicated Home Meds Active Scripts Albuterol Sulfate* (Ventolin HFA*) 18 Gm Hfa.aer.ad, 2 PUFF INHALATION Q4H, #1 INHALER Prov:MATT SANCHEZ PA-C 12/31/16 Prednisone* (Prednisone*) 20 Mg Tab, 40 MG PO DAILY for 3 Days, #6 TAB Prov:MATT SANCHEZ PA-C 12/31/16 Reported Medications Multivit/Min/Fol Ac/Iron/Pren* ( S*) 1 Tab Tab, 1 TAB PO DAILY, TAB 11/17/16 [Asthma Med] No Conflict Check, INH PRN 01/14/13 [ Vit] No Conflict Check, 1 TAB PO DAILY 01/14/13 [Prednisone] No Conflict Check, PO DAILY 01/14/13 Follow-up Plan 2 3 days in clinic Bed on pelvic rest until delivery Continue taking her medication Primary Care Provider Time spent on discharge: > 30 minutes Pending Labs Laboratory Tests Test 02/13/17 00:32 Magnesium Level 4.3mg/dl (1.7-2.5) ABDELRAHMAN SAMANIGEO MD Feb 13, 2017 19:21
--- NOTE | 2017-02-13 19:23 | PD.PPDC ---
COMPUTER LAB PARA PROFESSIONAL Discharge Instruction Provider Information Physician Information 20-year-old female admitted for labor and had tocolysis of contractions Diagnosis Final Diagnosis: labor: Resolved; short cervix Condition Patient Condition: Good Diet Diet: Resume Regular Diet Activity/Restrictions Activity: Normal Activity Bedrest May Shower Restrictions: No Exercising No Lifting Minimize Walking Minimize Stair-climbing Nothing in the Vagina Follow-up Follow-up with Physician: 2, 3, Day/Days (Clinic for follow-up) Return to clinic for Comment: Bed and pelvic rest until delivery ABDELRAHMAN SAMANIEGO MD Feb 13, 2017 19:23
[2017-02-13] MEDS ORDERED: PROG100C5 VAG (19:25)
[2017-02-13] MEDS ORDERED: NIFE10CA19 PO (19:25)
--- NOTE | 2017-02-13 19:31 | PERINOTE ---
Date/Time of Note Date/Time of Note DATE: 02/13/17 TIME: 19:23 Assessment/Recommendations Assessment: IUP - , labor Recommendations: Would consider discharging the patient home with instructions to return for contractions, pelvic pressure, vaginal bleeding or loss of mucous or fluid. I discussed these precautions with her. Could consider serial testing for history of asthma and contractions. OB Subjective Free Text/Dictaton Patient admitted with vaginal bleeding and was found to have contractions, treated with magnesium sulfate, transitioned to nifedipine HD# 3 IUP @ 32W6D Current Medications Current Medications Lactated Ringer's (Lr) 1,000 ml @ 75 mls/hr [id number] IV Last administered on 06:33; Admin Dose 75 MLS/HR; Start 02/11/17 at 16:00 Progesterone (Prometrium) 200 mg HS VAG Last administered on 02/12/17 21:23; Admin Dose 200 MG; Start 02/12/17 at 21:00 Nifedipine (Procardia) 20 mg Q6 PO Last administered on 02/13/17 17:08; Admin Dose 20 MG; Start 02/13/17 at 10:00 Past Medical History Medical History: other (asthma. Last ED visit about 2-3 months ago. Denies admissions. Occasional albuterol use. Has used prednisone in the past) Surgical History: no surgical history [employer] History: other (D&C x 2) Para: 2 : 5 LMP (Females 10-50): Family History Significant Family History: diabetes Social History Smoker: non-smoker Alcohol: none Drugs: none Constitutional: no symptoms reported Respiratory: no symptoms reported Cardiovascular: no symptoms reported All Other Systems: Reviewed and Negative (Reports active movement. Denies contractions, vaginal bleeding, loss of fluid) OB Admission Exam Physical Exam Vitals: Vital Signs Date Time Temp Pulse Resp B/P Pulse Ox O2 Delivery O2 Flow Rate FiO2 02/11/17 10:31 97.7 75 105/55 Abdomen: WNL Last 72 hours Lab Results CBC & BMP 02/11/17 12:55 Magnesium Level Test 02/11/17 18:17 02/12/17 00:08 02/12/17 06:08 02/12/17 11:44 Magnesium Level 3.7 H 4.1 H 4.3 H 4.1 H Test 02/12/17 18:16 02/13/17 00:32 Magnesium Level 4.1 H 4.3 H Ultrasound Results Cervical Length 1.5 cm (shortest length) on 02/11/17. Images were reviewed by me Copies To: CC: ABDELRAHMAN SAMANIEGO MD, MARIE H MD Feb 13, 2017 19:31
== END 2017-02-13 20:18 | disposition home or self-care (01) | DRG 778 ==
LOC: L-D 09:33 → OBT 09:33 → OBG 14:22
PROVIDERS: ADMIT Obstetrics & Gynecology; ATTEND Obstetrics & Gynecology
DX: O60.03 Preterm labor without delivery, third trimester (principal); O26.873 Cervical shortening, third trimester; Z3A.32 32 weeks gestation of pregnancy
CPT/HCPCS: 36415; 76817; 81003; 83735; 85025; 96360; 96361; 96372; G0463; J0702; J3105; J3475; J7120

== ENCOUNTER 2017-03-03 17:22 | Outpatient (CLI) | payer MEDICAID ==
[~2017-03-03] VITALS: Ht 154.9 cm; Wt 106.9 kg
[~2017-03-03 17:22] MED LIST changes: -ASTHMA MED INH; +NIFE10CA19 PO; -PRED20TA PO; -PREDNISONE PO; +PROG100C5 VAG
[2017-03-03 17:34] VITALS: Ht 154.9 cm; Wt 106.9 kg
[2017-03-03 17:35] VITALS: BP 104/57; PULSE 86
--- NOTE | 2017-03-03 19:46 | PN ---
Triage Information Date/Time 03/03/2017 Reason for visit: Uterine contractions (C/O uterine contractions 2 days ago ) Weeks of Gestation 35+ weeks /Para G 5 P 2 Diabetes: none Hypertention: none Objective Vital Signs Date Time Temp Pulse Resp B/P Pulse Ox O2 Delivery O2 Flow Rate FiO2 03/03/17 17:35 98.8 86 104/57 Heart Rate: 140's Heart Rate Comments reactive Contractions: None Exam %50 1 cm Disposition: Discharge Assessment/Plan labor ruled out ABDELRAHMAN SAMANIEGO MD Mar 03, 2017 19:46
== END 2017-03-03 19:55 | disposition home or self-care (01) ==
LOC: OBT 17:22 → L-D 17:23 → OBT 19:55
PROVIDERS: ATTEND Obstetrics & Gynecology
DX: O62.9 Abnormality of forces of labor, unspecified (principal); Z3A.35 35 weeks gestation of pregnancy
CPT/HCPCS: G0463

== ENCOUNTER 2017-03-29 12:00 | Inpatient (IN) | payer MEDICAID ==
[~2017-03-29] VITALS: Ht 154.9 cm; Wt 109.9 kg
[2017-03-29 13:22] VITALS: Ht 154.9 cm; Wt 109.9 kg
[2017-03-29 13:24] VITALS: BP 103/55; PULSE 82; RESP 20
[2017-03-29] MEDS ORDERED: CARBOPROST 250 MCG INJ IM PRN ×2 (13:30→22:30)
[2017-03-29] MEDS ORDERED: MINERAL OIL LIGHT 10 ML VIAL TOP ONE (13:30)
[2017-03-29] MEDS ORDERED: METHYLERGONOVINE 0.2 MG INJ IM PRN ×2 (13:30→22:30)
[2017-03-29] MEDS ORDERED: OXYTOCIN 30 UNITS/LR 500 ML IV SCH ×2 (13:30)
[2017-03-29] MEDS ORDERED: MISOPROSTOL 200 MCG TAB PR PRN ×2 (13:30→22:30)
[2017-03-29] MEDS ORDERED: LIDOCAINE 1% (MPF) 30 ML INJ INJ PRN (13:30)
[2017-03-29] MEDS ORDERED: IBUPROFEN 600 MG TAB PO PRN (13:30)
[2017-03-29] MEDS ORDERED: BUTORPHANOL 2 MG INJ IV PRN (13:30)
[2017-03-29] MEDS ORDERED: OXYTOCIN 30 UNITS/LR 500 ML IV PRN ×2 (13:30→22:30)
[2017-03-29] MEDS ORDERED: AMPICILLIN 2 GM/NS (PMX) 100 ML IV ONE (13:30)
[2017-03-29] MEDS: LACTATED RINGER'S 1,000 ML IV SCH ×2 (13:52→18:07)
[2017-03-29 14:00] LABS: BASOPHILS % 0.2 % (0.0-2.0); EOSINOPHILS # 0.1 10^3/ul (0.0-0.5); HEMATOCRIT 36.1 % (37.0-47.0); HEMOGLOBIN 11.5 g/dl (12.0-16.0); LYMPHOCYTES # 2.7 10^3/ul (0.8-2.9); LYMPHOCYTES % 22.4 % (15.0-51.0); MEAN CORPUSCULAR HEMOGLOBIN 26.6 pg (29.0-33.0); MEAN CORPUSCULAR HGB CONC 31.9 g/dl (32.0-37.0); MEAN CORPUSCULAR VOLUME 83.6 fl (82.0-101.0); MONOCYTE # 0.7 10^3/ul (0.3-0.9); MONOCYTES % 5.4 % (0.0-11.0); NEUTROPHIL # 8.5 10^3/ul (1.6-7.5); NEUTROPHILS % 69.9 % (39.0-77.0); PLATELET COUNT 204 10^3/UL (140-415); RED BLOOD COUNT 4.32 10^6/ul (4.20-5.40); RED CELL DISTRIBUTION WIDTH 15.6 % (11.5-14.5); WHITE BLOOD COUNT 12.2 10^3/ul (4.8-10.8)
[2017-03-29 14:19] LABS: INR 0.99; PROTIME 13.1 Sec (12.2-14.2)
[2017-03-29 14:20] LABS: PARTIAL THROMBOPLASTIN TIME 29.2 Sec (25.0-35.0)
[2017-03-29 14:50] LABS: ADD UMIC YES; UR ASCORBIC ACID NEGATIVE (NEGATIVE); UR BACTERIA FEW /HPF (NONE SEEN); UR BILIRUBIN (Dip) NEGATIVE (NEGATIVE); UR BLOOD (Dip) NEGATIVE (NEGATIVE); UR CLARITY CLEAR (CLEAR); UR COLOR YELLOW (YELLOW); UR GLUCOSE (Dip) NEGATIVE (NEGATIVE); UR KETONES (Dip) NEGATIVE (NEGATIVE); UR LEUKOCYTE ESTERASE (Dip) TRACE Leu/ul (NEGATIVE); UR MUCUS FEW /HPF (NONE SEEN); UR NITRITE (Dip) NEGATIVE (NEGATIVE); UR RBC 0 /HPF (0-5); UR SPECIFIC GRAVITY (Dip) 1.012 (1.003-1.030); UR SQUAMOUS EPITHELIAL CELL FEW /HPF (FEW); UR TOTAL PROTEIN (Dip) NEGATIVE (NEGATIVE); UR UROBILINOGEN (Dip) NEGATIVE (NEGATIVE)
[2017-03-29] MEDS ORDERED: LACTATED RINGER'S 1,000 ML IV PRN (15:30)
--- NOTE | 2017-03-29 16:16 | HP ---
Date/Time of Note Date/Time of Note DATE: 03/29/17 TIME: 16:13 OB - History Hx of Present Free Text/Dictation admitted for elective induction at 39 weeks Last Menstrual Period: Jun 09, 2016 Estimated Due Date: Apr 04, 2017 : 5 Para: 2 Spontaneous : 2 Care: Good Care Ultrasounds: Normal mid trimester US Obstetrical Complications: None Medical Complications: Other (asthma) Past Family/Social History * Past Medical, Surgical, Family and Obstetric Histories reviewed from chart. Blood Type: A+ Rubella: immune RPR/VDRL: Negative GBS Status: Positive HBsAG: Negative OB Admission Exam Vital Signs Vital Signs Vital Signs Date Time Temp Pulse Resp B/P Pulse Ox O2 Delivery O2 Flow Rate FiO2 03/29/17 13:24 98.6 82 20 103/55 Room Air Physical Exam HEENT: WNL Heart: Rhythm Normal Lungs: Clear, Equal Abdomen: WNL Extremities: Normal Reflexes: Normal Cervical Dilatation: None Effacement: 0% Station: -3 Membranes: Intact Heart Rate: 130's Accelerations: Accelerations Present Decelerations: No Decelerations Varibility: Moderate Contractions on Admission: None Last 72 hours Lab Results CBC & BMP 03/29/17 13:17 OB Assessment/Plan Reason for admission: induction of labor Other Assessment: term gestation Induction Method: per Misoprostol Protocol ABDELRAHMAN SAMANIEGO MD Mar 29, 2017 16:16
[2017-03-29] MEDS ORDERED: AMPICILLIN 1 GM/NS (PMX) 50 ML IV SCH (17:30)
[2017-03-29] MEDS: OXYTOCIN 30 UNITS/LR 500 ML IV SCH ×2 (19:55→23:47)
--- NOTE | 2017-03-29 20:41 | LDN ---
Date/Time of Note Date/Time of Note DATE: 03/29/17 TIME: 20:39 Delivery Summary normal vaginal delivery Weeks of Gestation 39w1d Placenta Delivered: Spontaneously Meconium: Light Episiotomy: No Perineal laceration: 0 Laceration repair: periurethral 0000 ch gut Anesthesia type: None Estimated blood loss: 100 Sponge & Needle done & correct: Yes All needle counts correct: Yes Any foreign bodies felt in the: No Problems: Infant Delivery Information Sex Sex: male Apgars 1 Minute: 9 5 Minute: 9 Suctioning Nose & mouth suctioned at otto: Yes Delee suction performed: No Umbilical Cord Umbilical cord with: 3 Vessels Cord presentations: no nuchal cord Cord Blood was obtained: Yes Mother & Baby Disposition Disposition Mom & Baby to Maternity; Good: Yes Mom transferred to: Other Baby to NICU: No () TONY PULIDO MD Mar 29, 2017 20:41
[2017-03-29 21:45] VITALS: BP 110/55; PULSE 73; RESP 18
[2017-03-29] MEDS ORDERED: ZOLPIDEM 5 MG TAB PO PRN (22:30)
[2017-03-29] MEDS ORDERED: WITCH HAZEL/GLYCERIN PAD PR PRN (22:30)
[2017-03-29] MEDS ORDERED: LANOLIN 7 GM TUBE TOP PRN (22:30)
[2017-03-29] MEDS ORDERED: OXYCODONE/ASPIRIN (4.88/325) TAB PO PRN ×2 (22:30)
[2017-03-29] MEDS ORDERED: BENZOCAINE 20% 56 ML SPRAY TOP PRN (22:30)
[2017-03-29 22:45] VITALS: BP 112/58; PULSE 77; RESP 20
[2017-03-29] MEDS: IBUPROFEN 600 MG TAB PO SCH (23:27)
[2017-03-30 00:03] VITALS: BP 108/66; PULSE 67; RESP 19
[2017-03-30 03:57] VITALS: BP 112/62; PULSE 69; RESP 19
[2017-03-30] MEDS: IBUPROFEN 600 MG TAB PO SCH ×4 (06:13→23:55)
[2017-03-30 07:45] VITALS: BP 104/59; PULSE 77; RESP 18
[2017-03-30] MEDS: SENNA/DOCUSATE NA (8.6MG/50MG) TAB PO SCH ×2 (09:02→20:51)
[2017-03-30 10:46] LABS: BASOPHILS % 0.3 % (0.0-2.0); EOSINOPHILS # 0.1 10^3/ul (0.0-0.5); EOSINOPHILS % 0.9 % (0.0-7.0); HEMATOCRIT 30.2 % (37.0-47.0); HEMOGLOBIN 9.5 g/dl (12.0-16.0); LYMPHOCYTES # 2.9 10^3/ul (0.8-2.9); LYMPHOCYTES % 24.8 % (15.0-51.0); MEAN CORPUSCULAR HGB CONC 31.5 g/dl (32.0-37.0); MEAN CORPUSCULAR VOLUME 82.5 fl (82.0-101.0); MEAN PLATELET VOLUME 11.5 fl (7.4-10.4); MONOCYTE # 0.5 10^3/ul (0.3-0.9); MONOCYTES % 4.5 % (0.0-11.0); NEUTROPHILS % 68.7 % (39.0-77.0); PLATELET COUNT 173 10^3/UL (140-415); RED BLOOD COUNT 3.66 10^6/ul (4.20-5.40); WHITE BLOOD COUNT 11.6 10^3/ul (4.8-10.8)
[2017-03-30 16:00] VITALS: BP 91/54; PULSE 69; RESP 18
--- NOTE | 2017-03-30 17:01 | DS ---
Date/Time of Note Date/Time of Note home next day DATE: 03/30/17 TIME: 17:00 Obstetrical Discharge Record Final Diagnosis Final Diagnosis: Term delivered Other Final Diagnosis S/P vaginal delivery Vaginal Delivery Obstetrical Delivery: Spontaneous Complications Augmentation: Yes Condition on Discharge Physical Assessment Last Vitals: see nurses notes Voiding: Yes Bowel Movement: Yes Breast: Soft, non-tender, Filling Fundus: Firm Abdomen and Incision: soft BS + Episiotomy: NA Calf Tenderness: No Patient Condition: Good ABDELRAHMAN SAMANIEGO MD Mar 30, 2017 17:01
--- NOTE | 2017-03-30 17:02 | PD.PPDC ---
MULTIMEDIA ASSISTANT Discharge Instruction Provider Information Physician Information 26 y/o female had vaginal delivery Diagnosis Final Diagnosis: S/P vaginal delivery Condition Patient Condition: Good Diet Diet: Resume Regular Diet Activity/Restrictions Activity: Normal Activity May Shower Restrictions: Nothing in the Vagina Return to Work or School: May 17, 2017 Follow-up Follow-up with Physician: 4, Week/Weeks (in clinic) Return to clinic for OB Instructions: Breast Tenderness Depression Comment: pelvic rest X 6 weeks ABDELRAHMAN SAMANIEGO MD Mar 30, 2017 17:02
[2017-03-30] MEDS ORDERED: IBUP-1542 PO (17:03)
[2017-03-30 19:45] VITALS: BP 106/50; PULSE 77; RESP 18
[2017-03-31 04:06] VITALS: BP 99/73; PULSE 70; RESP 20
[2017-03-31] MEDS: IBUPROFEN 600 MG TAB PO SCH ×2 (05:34→11:40)
[2017-03-31 09:00] VITALS: BP 99/56; PULSE 63; RESP 18
[2017-03-31] MEDS ORDERED: DIPHTH/TET/ACEL PERTUSS (ADULT) 0.5 ML VIAL IM* ONE (09:00)
[2017-03-31] MEDS: SENNA/DOCUSATE NA (8.6MG/50MG) TAB PO SCH (09:24)
== END 2017-03-31 15:25 | disposition home or self-care (01) | DRG 775 ==
LOC: L-D 12:09 → PP1 21:50
PROVIDERS: ADMIT Obstetrics & Gynecology; ATTEND Obstetrics & Gynecology
PROC: 0UQMXZZ Repair Vulva, External Approach (ICD-10-PCS; 2017-03-29)
PROC: 3E0P7GC Introduction of Other Therapeutic Substance into Female Reproductive, Via Natural or Artificial Opening (ICD-10-PCS; 2017-03-29)
PROC: 10E0XZZ Delivery of Products of Conception, External Approach (ICD-10-PCS; principal; 2017-03-29 12:00)
DX: O99.52 Diseases of the respiratory system complicating childbirth (principal); J45.909 Unspecified asthma, uncomplicated; O71.82 Other specified trauma to perineum and vulva; Z37.0 Single live birth; Z3A.39 39 weeks gestation of pregnancy
CPT/HCPCS: 81001; 85025; 85610; 85730; 86592; 86900; 86901; 87340; 90715; J0290; J0595; J2590; J7120

== ENCOUNTER 2018-07-09 20:55 | Emergency (ER) | payer MEDICAID ==
[~2018-07-09] VITALS: Wt 108.9 kg
[~2018-07-09 20:55] MED LIST changes: +IBUP-1542 PO; -NIFE10CA19 PO
[2018-07-09 20:59] VITALS: BP 124/68
[2018-07-09] MEDS ORDERED: IPRATROPIUM (NEB) 0.5 MG/2.5 ML AMP INH STA (21:25)
[2018-07-09] MEDS ORDERED: ALBUTEROL 0.5% (NEB) 2.5 MG/0.5 ML AMP INH STA (21:25)
[2018-07-09] MEDS ORDERED: METHYLPREDNISOLONE 125 MG INJ IM ONE (21:30)
--- NOTE | 2018-07-09 21:36 | ERD ---
ER Documentation Chief Complaint Chief Complaint ASTHMA EXACERBATION X'S 1 DAY; RESCUE INHALER INEFFECTIVE HPI 27-year-old female with history of asthma complains of asthma flareup. She co mplains of shortness of breath for the past 2 days using her albuterol inhaler about every hour. She denies fevers. Admits to cough chest tightness. She denies taking any other medications. Rates as moderate in severity ROS All systems reviewed and are negative except as per history of present illness. Medications Home Meds Active Scripts Albuterol Sulfate* (Proair HFA*) 8.5 Gm Hfa.aer.ad, 2 PUFF INH Q4H PRN for WHEEZING AND SOB, #1 INHALER Prov:VIPIN GUADALUPE PA-C 07/09/18 Prednisone* (Prednisone*) 20 Mg Tab, 40 MG PO DAILY for 4 Days, TAB Prov:VIPIN GUADALUPE PA-C 07/09/18 Ibuprofen* (Ibuprofen*) 600 Mg Tablet, 600 MG PO Q6, #30 TAB 0 Refills Prov:ABDELRAHMAN SAMANIEGO MD 03/30/17 Progesterone,Micronized* (Progesterone*) 100 Mg Capsule, 200 MG VAG HS, #60 CAP 0 Refills Prov:ABDELRAHMAN SAMANIEGO MD 02/13/17 Albuterol Sulfate* (Ventolin HFA*) 18 Gm Hfa.aer.ad, 2 PUFF INHALATION Q4H, #1 INHALER Prov:MATT SANCHEZ PA-C 12/31/16 Reported Medications Multivit/Min/Fol Ac/Iron/Pren* ( S*) 1 Tab Tab, 1 TAB PO DAILY, TAB 11/17/16 [ Vit] No Conflict Check, 1 TAB PO DAILY 01/14/13 Allergies Allergies: Coded Allergies: No Known Allergy (Unverified , 11/05/15) PMhx/Soc History of Surgery: Yes (D&C) Anesthesia Reaction: No Hx Neurological Disorder: No Hx Respiratory Disorders: Yes (Asthma) Hx Cardiac Disorders: No Hx Psychiatric Problems: No Hx Miscellaneous Medical Probl: No Hx Alcohol Use: No Hx Substance Use: No Hx Tobacco Use: No Smoking Status: Never smoker Physical Exam Vitals Vital Signs Date Temp Pulse Resp B/P (MAP) Pulse Ox O2 O2 Flow FiO2 Time Delivery Rate 07/09/18 102 22 99 Room Air 23:02 07/09/18 89 20 96 21 21:40 07/09/18 98.1 99 20 124/68 95 20:59 (86) Physical Exam GENERAL: WD/WN, in no apparent distress, non-toxic appearing HENT: NC/AT, bilateral TM has good cone of light EYES: Conjunctiva normal NECK: Supple PULM: Inspiratory and expiratory wheezing. No rales, crackles, or rhonchi heard. No tripod position, normal labored breathing, no stridor, no evidence of using accessory muscles. CV: Good capillary refill, good S1 and S2, no murmurs appreciated GI: Non-distended, no guarding BACK: No masses. EXT: No clubbing, cyanosis, or edema. NEURO: Moves on all fours SKIN: intact, no cyanosis. PSYCH: Normal mood Results 24 hrs Current Medications Medications Dose Sig/Jhonathan Start Time Status Last (Trade) Ordered Route PRN Stop Time Admin Dose Reason Admin 125 mg ONCE ONCE 07/09/18 DC 07/09/18 Methylprednis IM 21:30 07/09/18 21:39 olone Sodium 21:31 Succinate (Solu-Medrol) Albuterol 10 mg ONCE STAT 07/09/18 DC 07/09/18 (Proventil INH 21:25 07/09/18 21:39 0.5% (Neb)) 21:27 Ipratropium 1 mg ONCE STAT 07/09/18 DC 07/09/18 [place] INH 21:25 07/09/18 21:39 (Atrovent 21:27 0.02% (Neb)) Procedures/MDM 27-year-old female patient presents to the ER with asthma exacerbation, low suspicion for status asthmaticus, pneumonia, inhaled foreign body, or other life threatening pulmonary emergencies due to physical examination. RT was consulted in the ED, breathing treatment albuterol and Atrovent was administered. She was given Solu-Medrol. Patient was saturating well on room air and wheezing improved. \. Prescription for albuterol and prednisone was given, discussed to have a close follow-up with a primary care physician, discussed to return to the ED if not improving as expected or if condition worsens. Patient understood and agreed with this plan. Able to be discharged home Departure Diagnosis: Primary Impression: Asthma Condition: Stable VIPIN GUADALUPE PA-C Jul 09, 2018 21:36
[2018-07-09] MEDS ORDERED: PRED20TA PO (22:38)
[2018-07-09] MEDS ORDERED: ALBU8.5H8 INH (22:38)
[2018-07-09 23:02] VITALS: PULSE 102; RESP 22
== END 2018-07-09 23:02 | disposition home or self-care (01) ==
LOC: FTE 20:55
DX: J45.901 Unspecified asthma with (acute) exacerbation (principal)
CPT/HCPCS: 94644; J2930; Z7610; 96372